=== PATIENT | male | born 1960 | race Caucasian/White ===

== ENCOUNTER → 2019-05-25 | Outpatient (CLI) | payer BC ==
[2015-12-07 09:00] VITALS: BP 112/71
[~2019-05-25] MED LIST: LISI-338 PO; LORA10TA65 PO; META-21 PO; OXYC1TAB15 PO
--- NOTE | 2019-05-25 13:59 | RAD ---
Indication:Pain in the thumb. TECHNIQUE: 2 views of right hand COMPARISON: None FINDINGS: No acute fracture or dislocation. 0.5 x 0.5 standard calcific density is seen proximal to the base of the first metacarpal bone. 7 mm lucent lesion is seen along the medial and proximal aspect of the middle phalanx of the fourth finger most likely a benign etiology such as a bone cyst. Mild first CMC joint osteoarthritis. IMPRESSION: 1. Small calcific density adjacent to the base of the first metacarpal bone may represent calcific tendinitis or loose body. 2. Benign-appearing lucent lesion in the middle phalanx of the fourth finger. Further evaluation with MRI of the hand specifically fourth finger with IV contrast recommended if there are symptoms in the fourth finger. Electronically signed by: Robert Salinas DO (05/25/2019 1:56 PM) [facility]
== END | disposition home or self-care (01) ==
LOC: PMG 10:04
PROVIDERS: ATTEND Registered Nurse
DX: M19.041 Primary osteoarthritis, right hand (principal)
CPT/HCPCS: 73120